=== PATIENT | female | born 1940 | race Caucasian/White ===

== ENCOUNTER 2017-10-10 14:25 | Emergency (ER) | payer OTHER ==
[~2017-10-10] VITALS: Ht 154.9 cm; Wt 59.0 kg
--- NOTE | ~2017-10-10 | EKG ---
[address] [address] [address] [facility] [place] [address] ELECTROCARDIOGRAM REPORT Name: FRANKLIN LIZARRAGA [id number] Admission: 10/10/17 Attend Phys: Discharge: 10/10/17 Date of : 40 Report #: [id number] THIS REPORT FOR: //name// [facility] ED Test Date: 2017-10-10 Test Time: 15:27:11 Pat Name: FRANKLIN LIZARRAGA Department: Room: Gender: F Manager Wind: KEATON : 1940 Requested By: Shahla Joseph Order Number: [id number] MD: Victor Hugo Zamarripa Measurements Intervals [place] Rate: 84 P: -45 WA: 108 QRS: -38 QRSD: 106 T: 47 QT: 416 QTc: 492 Interpretive Statements Sinus or ectopic atrial rhythm Short WA interval Left axis deviation Abnormal R-wave progression, late transition Borderline prolonged QT interval Compared to ECG 11/12/2013 23:38:44 Nonspecific change in the ST and T-wave segments Electronically Signed On 10-10-2017 17:21:22 GATE CLERK by Victor Hugo Zamarripa [email or web address] <ELECTRONICALLY SIGNED> By: Victor Hugo Zamarripa MD, [facility] 10/10/17 1721 1527 1527 Victor Hugo Zamarripa MD, [facility] /EPI
[~2017-10-10 14:25] MED LIST: ADULT LOW DOSE81 MG PO; ASPIRIN EC81 M1 PO; B12INJ; CALCIUM 1,0001 EACH PO; COMPAZINE10 MG PO; FLAGYL 250 MG250 MG PO; FLEX ABILITY C1 EACH PO; GLEEVEC100 MG PO; IMODIUM A-1 MG/7.5 M PO; KEFLEX500 MG PO; LACTONEX; MIRALAX255 GM PO; MULTIPLE VITAM1 EAC3 PO; MULTIVITAMINS1 EAC7 PO; NITROFURANTOIN50 M4 PO; NORCO 5-325 TA1 EACH PO; PREVACID 24HR15 MG PO; PRILOSEC 20 MG20 MG PO; RANITIDINE 150150 M1 PO; TAMIFLU75 MG PO; VAGIFEM10 MCG VG; VITAMIN B12 5500 MC1 PO; VITAMIN D32000 UNI1 PO; ZETIA10 MG PO; [UNRECOGNIZED DRUG - OTHER] PO
[2017-10-10 15:31] LABS: ABSOLUTE NEUTROPHILS 2.1 thou/uL (1.4-8.2); BASOPHILS 0.4 % (0.0-2.0); EOSINOPHILS 3.4 % (0.0-3.0); HEMATOCRIT 34.9 % (37.0-47.0); HEMOGLOBIN 12.3 gm/dL (12.0-15.0); LYMPHOCYTES 49.3 % (24.0-44.0); MCH 34.2 pg (26.0-34.0); MCHC 35.2 g/dL (28.0-37.0); MCV 97.2 fL (80.0-100.0); MONOCYTES 6.4 % (1.0-8.0); PLATELET COUNT 158 thou/uL (150-400); POLYS 40.5 % (36.0-66.0); RBC 3.58 mil/uL (4.20-5.00); RDW 12.3 % (10.5-14.5); WBC 5.2 thou/uL (4.0-11.0)
[2017-10-10 15:33] LABS: CALCIUM 8.4 mg/dL (8.5-10.1); CREATININE 1.1 mg/dL (0.6-1.0); POTASSIUM 3.8 mmol/L (3.5-5.1)
[2017-10-10 15:39] LABS: ALBUMIN 3.6 g/dL (3.4-5.0); TOTAL BILIRUBIN 0.4 mg/dL (<0.1-1.0); TOTAL PROTEIN 6.9 g/dL (6.4-8.2)
[2017-10-10] MEDS ORDERED: TESSALON PERLE100 MG PO (16:34)
[2017-10-10] MEDS ORDERED: PREDNISONE 20 M20 MG PO (16:34)
[2017-10-10] MEDS ORDERED: VENTOLIN HFA 1818 GM INH (16:34)
[2017-10-10 16:53] VITALS: BP 155/63
== END 2017-10-10 16:55 | disposition home or self-care (01) ==
LOC: ER 14:25
PROVIDERS: Nurse Practitioner Family
DX: J15.9 Unspecified bacterial pneumonia (principal); E78.5 Hyperlipidemia, unspecified; Z88.2 Allergy status to sulfonamides; Z88.1 Allergy status to other antibiotic agents; Z88.8 Allergy status to other drugs, medicaments and biological substances

== ENCOUNTER → 2018-08-20 | Outpatient (CLI) | payer OTHER ==
[~2018-08-20] MED LIST changes: +PREDNISONE 20 M20 MG PO; +TESSALON PERLE100 MG PO; +VENTOLIN HFA 1818 GM INH
== END ==
LOC: ULTRA 09:52
DX: R79.89 Other specified abnormal findings of blood chemistry (principal); Z90.49 Acquired absence of other specified parts of digestive tract; Z87.19 Personal history of other diseases of the digestive system

== ENCOUNTER 2019-04-11 08:52 | Emergency (ER) | payer OTHER ==
[~2019-04-11] VITALS: Ht 157.5 cm; Wt 59.0 kg
[2019-04-11 09:12] LABS: URINE BILIRUBIN NEGATIVE (Negative); URINE BLOOD NEGATIVE (Negative); URINE CLARITY CLEAR; URINE COLOR YELLOW; URINE GLUCOSE-RANDOM* NEGATIVE (Negative); URINE KETONES NEGATIVE (Negative); URINE LEUKOCYTES-REFLEX 1+ (Negative); URINE NITRITE-REFLEX NEGATIVE (Negative); URINE PROTEIN (DIPSTICK) NEGATIVE (Negative); URINE UROBILINOGEN 0.2 E.U./dl (0.2-1.0)
[2019-04-11] MEDS ORDERED: SYNTHROID100 MC1 PO (09:30)
[2019-04-11] MEDS ORDERED: PROTONIX40 M1 PO (09:30)
[2019-04-11] MEDS ORDERED: CRESTOR5 MG PO (09:30)
[2019-04-11] MEDS ORDERED: VAGIFEM10 MCG (09:31)
[2019-04-11] MEDS ORDERED: SPRYCEL50 MG PO (09:31)
[2019-04-11 09:34] LABS: CASTS None Seen /LPF (None Seen); CRYSTALS None Seen /LPF (None Seen); SQUAMOUS >10 Many /LPF (0-3)
[2019-04-11 09:38] LABS: BASOPHILS 0.7 % (0.0-2.0); HEMATOCRIT 39.5 % (37.0-47.0); HEMOGLOBIN 13.7 gm/dL (12.0-15.0); MCHC 34.6 g/dL (28.0-37.0); MONOCYTES 3.7 % (1.0-8.0); PLATELET COUNT 208 thou/uL (150-400); POLYS 43.6 % (36.0-66.0); RBC 4.03 mil/uL (4.20-5.00); RDW 12.5 % (10.5-14.5); WBC 9.1 thou/uL (4.0-11.0)
[2019-04-11 09:38] LABS: URINE RBC 0-2 Rare /HPF (0-2); URINE WBC-REFLEX 6-15 Few /HPF (0-5)
[2019-04-11 09:39] LABS: BACTERIA-REFLEX 1-9 Few /HPF (None Seen)
[2019-04-11 09:42] LABS: ANION GAP 9 mmol/L (7-16); BUN 22 mg/dL (7-18); CALCIUM 9.1 mg/dL (8.5-10.1); CHLORIDE 105 mmol/L (98-107); CO2 25 mmol/L (21-32); CREATININE 1.5 mg/dL (0.6-1.0); GLUCOSE 111 mg/dL (74-106); POTASSIUM 4.1 mmol/L (3.5-5.1); SODIUM 139 mmol/L (136-145)
[2019-04-11 09:51] LABS: TROPONIN-I <0.06 ng/mL (<0.06)
--- NOTE | 2019-04-11 11:04 | EKG ---
[address] [address] [place] [address] ELECTROCARDIOGRAM REPORT Name: FRANKLIN LIZARRAGA [facility] [id number] Admission: 04/11/19 Attend Phys: Discharge: Date of : 40 Report #: [id number] THIS REPORT FOR: //name// [facility] ED Test Date: 2019-04-11 Test Time: 09:36:34 Pat Name: FRANKLIN LIZARRAGA Department: Room: Gender: F Lead Advisor: MYRTLE : 1940 Requested By: Steve Fong Order Number: [id number] MD: Ryan Thomason Measurements Intervals [place] Rate: 66 P: 63 AR: 140 QRS: -38 QRSD: 106 T: 2 QT: 450 QTc: 472 Interpretive Statements Sinus rhythm Left ventricular hypertrophy Anterior Q waves, possibly due to LVH Borderline T abnormalities, inferior leads Compared to ECG 10/10/2017 15:27:11 Left ventricular hypertrophy now present Short AR interval no longer present Left-axis deviation no longer present Electronically Signed On 04-11-2019 11:04:30 CDT by Ryan Thomason [email or web address] <ELECTRONICALLY SIGNED> By: Ryan Thomason MD 04/11/19 1104 0936 0936 Ryan Thomason MD /[facility]
[2019-04-11] MEDS ORDERED: ASPIRIN81 M2 PO (12:03)
[2019-04-11 12:19] VITALS: BP 146/60
[2019-04-12] MEDS ORDERED: NORCO 5-325 TA1 EAC1 PO (04:42)
== END 2019-04-11 12:19 | disposition home or self-care (01) ==
LOC: ER 08:52
PROVIDERS: Emergency Medicine
DX: R51 Headache (principal); E78.5 Hyperlipidemia, unspecified; Z90.710 Acquired absence of both cervix and uterus; Z90.49 Acquired absence of other specified parts of digestive tract; Z95.5 Presence of coronary angioplasty implant and graft; Z88.2 Allergy status to sulfonamides; Z88.6 Allergy status to analgesic agent; Z88.1 Allergy status to other antibiotic agents; Z91.048 Other nonmedicinal substance allergy status

== ENCOUNTER 2019-04-12 00:02 | Emergency (ER) | payer OTHER ==
[~2019-04-12] VITALS: Ht 154.9 cm; Wt 59.0 kg
[~2019-04-12 00:02] MED LIST changes: +ASPIRIN81 M2 PO; +CRESTOR5 MG PO; +PROTONIX40 M1 PO; +SPRYCEL50 MG PO; +SYNTHROID100 MC1 PO; +VAGIFEM10 MCG
[2019-04-12 00:44] LABS: HEMATOCRIT 36.6 % (37.0-47.0); HEMOGLOBIN 12.9 gm/dL (12.0-15.0); MCH 34.6 pg (26.0-34.0); MCHC 35.3 g/dL (28.0-37.0); PLATELET COUNT 185 thou/uL (150-400); RBC 3.74 mil/uL (4.20-5.00); RDW 12.7 % (10.5-14.5); WBC 10.8 thou/uL (4.0-11.0)
[2019-04-12 00:55] LABS: CREATININE 1.2 mg/dL (0.6-1.0); POTASSIUM 4.3 mmol/L (3.5-5.1)
[2019-04-12 01:21] LABS: ABSOLUTE NEUTROPHILS 2.6 thou/uL (1.4-8.2); ATYPICAL LYMPHS 12 %
[2019-04-12] MEDS ORDERED: NORCO 5-325 TA1 EAC1 PO (04:42)
[2019-04-12 04:43] VITALS: BP 152/60
== END 2019-04-12 05:06 | disposition home or self-care (01) ==
LOC: ER 00:02
PROVIDERS: Emergency Medicine
DX: I67.1 Cerebral aneurysm, nonruptured (principal); E78.5 Hyperlipidemia, unspecified; Z90.710 Acquired absence of both cervix and uterus; Z90.49 Acquired absence of other specified parts of digestive tract; Z95.5 Presence of coronary angioplasty implant and graft; Z88.2 Allergy status to sulfonamides; Z88.1 Allergy status to other antibiotic agents; Z88.6 Allergy status to analgesic agent; Z91.048 Other nonmedicinal substance allergy status